=== PATIENT | female | born 1990 | race Caucasian/White ===

== ENCOUNTER 2017-05-08 19:36 | Emergency (ER) | payer BC | END 2017-05-08 20:47 | disposition home or self-care (01) | LOC: D.ER 19:36 | DX: S60.022A Contusion of left index finger without damage to nail, initial encounter (principal); X58.XXXA Exposure to other specified factors, initial encounter; Y93.89 Activity, other specified; Y92.029 Unspecified place in mobile home as the place of occurrence of the external cause ==

== ENCOUNTER 2018-03-09 20:01 | Emergency (ER) | payer BC ==
[~2018-03-09] VITALS: Ht 160 cm; Wt 63.6 kg
[2018-03-09 20:06] VITALS: Ht 160 cm; Wt 63.6 kg
[2018-03-09] MEDS ORDERED: KLONOPIN0.5 MG PO (20:44)
[2018-03-09 21:22] VITALS: BP 149/93
== END 2018-03-09 21:22 | disposition home or self-care (01) ==
LOC: D.ER 20:01
DX: I10 Essential (primary) hypertension (principal); F41.9 Anxiety disorder, unspecified